=== PATIENT | female | born 1970 | race Caucasian/White ===

== ENCOUNTER 2018-10-20 07:00 | Emergency (ER) | payer BC ==
[2018-10-20 07:17] VITALS: BP 124/80; PULSE 75; TEMP 97.9; BMI 30.8
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
== END 2018-10-20 08:29 | disposition home or self-care (01) ==
LOC: JER 07:00
DX: S90.01XA Contusion of right ankle, initial encounter (principal); X58.XXXA Exposure to other specified factors, initial encounter; Y93.89 Activity, other specified; Y92.89 Other specified places as the place of occurrence of the external cause
CPT/HCPCS: 73610-TC-RT-FY; 73630-TC-RT-FY; 99281-25

== ENCOUNTER 2019-08-04 10:19 | Emergency (ER) | payer BC ==
[2019-08-04 10:44] VITALS: BMI 38.3
--- NOTE | 2019-08-04 11:17 | PDOC ---
Attending Attestation - Resident Resident Name: Pricila Ying Ewa - HPI HPI: 08/04/19 12:41 pt presents to the ED complaining of a two day history of vague numbness and weakness of the entire right side. Reports that these symptoms have been intermittent, and present primarily at work. Denies slurred speech, confusion. Currently reports that her symptoms are minimal. Reports that she feels like her right foot is stuck to the floor occasionally when she is walking, but that she remains standing. This sensation lasts for seconds, and then the patient is able to continue ambulating. - Physicial Exam PE: 08/04/19 12:45 agree with resident exam. patient is alert and oriented and mildly anxious, but otherwise in no acute distress. Neuro: patient is alert and oriented x 3. Speech is fluent and clear. 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 No facial droop. No drift of either arm or leg. - Medical Decision Making 08/04/19 12:50 Pt presents to the ED complaining of subjective, intermittent numbness and weakness. Neuro exam is normal. No risk factors for CVA. Differential includes anxiety, electrolyte disturbance, less likely intracranial lesion or CVA. Will check labs and CT Head, likely discharge home if negative.
--- NOTE | 2019-08-04 11:40 | PDOC ---
History of Present Illness - General Chief Complaint: Weakness Stated Complaint: RT SIDED NUMBNESS Time Seen by Provider: 08/04/19 11:17 History Source: Patient - History of Present Illness Initial Comments: 08/04/19 16:32 49 y/o/f here for a sensation of weakness in her right upper and lower extremities. She states the symptoms started 2 days ago but she did not notice the symptoms as much until yesterday when she went to work. She states that intermittently her right leg feels heavy and it "feels like there is a magnet on the floor" that her leg gets stuck too. She states she feels better at home and notices the symptoms more when she is at work. She denies any numbness. She states she has felt a pins and needle sensation on her right anterior thigh. She denies any headache, SOB, chest pain, abd pain, dysuria, sore throat, cough , or other symptoms. PMHx: denies SHx: spinal fusion in 2013 Social: denies alcohol and tobacco use Past History - Past Medical History Allergies/Adverse Reactions: Allergies Allergy/AdvReac Type Severity Reaction Status Date / Time morphine Allergy Verified 08/04/19 12:26 codeine [Codeine] AdvReac NAUSEA/VOMI Verified 08/04/19 12:26 TING Home Medications: Ambulatory Orders NK [No Known Home Medication] 08/04/19 COPD: No Disorders: Yes (ENDOMETRIOSIS) - Immunization History Immunization Up to Date: Yes - Suicide/Smoking/Psychosocial Hx Smoking Status: No Smoking History: Never smoked Number of Cigarettes Smoked Daily: 0 Information on smoking cessation initiated: No Hx Alcohol Use: No Drug/Substance Use Hx: No Substance Use Type: None Hx Substance Use Treatment: No Review of Systems - Review of Systems Able to Perform ROS?: Yes Constitutional: No: Chills, Fever HEENTM: No: Nose Congestion, Difficulty Swallowing Respiratory: No: Cough, Shortness of Breath Cardiac (ROS): No: Chest Pain, Lightheadedness ABD/GI: No: Diarrhea, Nausea, Vomiting : No: Dysuria, Hematuria Musculoskeletal: No: Joint Pain, Muscle Pain Integumentary: No: Rash Neurological: Yes: Weakness. No: Numbness Psychiatric: No: Anxiety Endocrine: No: Excessive Sweating *Physical Exam - Vital Signs Last Vital Signs Temp Pulse Resp BP Pulse Ox 97.7 F 72 18 110/70 98 08/04/19 10:38 08/04/19 10:38 08/04/19 10:38 08/04/19 10:38 08/04/19 10:38 - Physical Exam General Appearance: Yes: Nourished, Appropriately Dressed HEENT: positive: EOMI, GABY, Normal Voice, Symmetrical Neck: positive: Trachea midline, Supple Respiratory/Chest: positive: Lungs Clear, Normal Breath Sounds. 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 negative: Facial Droop, Numbness, Sensory Deficit ED Treatment Course - LABORATORY CBC & Chemistry Diagram: 08/04/19 12:02 08/04/19 12:02 Medical Decision Making - Medical Decision Making 08/04/19 11:39 -49 y/o/f here for a sensation of weakness in her right upper and lower extremities. She states the symptoms started 2 days ago but she did not notice the symptoms as much until yesterday when she went to work. She states that intermittently her right leg feels heavy and it "feels like there is a magnet on the floor" that her leg gets stuck too. She states she feels better at home and notices the symptoms more when she is at work. She denies any numbness. -Workup with CBC, CMP. -Will order CT head pending results of urine test. -CT head negative for acute pathology. -CBC, CMP grossly normal. -Will discharge patient home with follow up instructions. *DC/Admit/Observation/Transfer Diagnosis at time of Disposition: Skin sensation disturbance - Discharge Dispostion Disposition: HOME Condition at time of disposition: Improved - Referrals - Patient Instructions Additional Instructions: If you worsening numbness, weakness, pain, fever, or other concerning symptoms please return to the ER. Please follow up with your primary care doctor within the next week. - Post Discharge Activity Forms/Work/School Notes: Back to Work
[2019-08-04 12:17] LABS: BASO % 0.8 % (0-2.0); EOS % 1.7 % (0-4.5); HEMATOCRIT 34.4 % (32.4-45.2); HEMOGLOBIN 11.5 GM/dL (10.7-15.3); LYMPH % 29.1 % (8-40); MCH 28.7 pg (25.7-33.7); MCHC 33.4 g/dl (32.0-36.0); MEAN PLT VOLUME 10.2 fl (7.5-11.1); MONO % 8.4 % (3.8-10.2); PLATELET COUNT 203 K/MM3 (134-434); RDW 14.2 % (11.6-15.6); WHITE BLOOD COUNT 4.2 K/mm3 (4.0-10.0)
[2019-08-04 12:40] LABS: ALBUMIN 3.9 g/dl (3.4-5.0); BILIRUBIN,TOTAL 0.4 mg/dL (0.2-1); BLOOD UREA NITROGEN 11.9 mg/dL (7-18); CALCIUM 8.6 mg/dL (8.5-10.1); CREATININE 0.9 mg/dL (0.55-1.3); POTASSIUM 3.9 mmol/L (3.5-5.1); TOT PROT 6.8 g/dl (6.4-8.2)
[2019-08-04 14:11] VITALS: BP 115/56; PULSE 67; TEMP 98.6
--- NOTE | 2019-08-04 16:29 | EKG ---
Test Reason : Blood Pressure : / mmHG Vent. Rate : 070 BPM Atrial Rate : 070 BPM P-R Int : 146 ms QRS Dur : 082 ms QT Int : 442 ms P-R-T Axes : 033 043 029 degrees QTc Int : 477 ms NORMAL SINUS RHYTHM POSSIBLE LEFT ATRIAL ENLARGEMENT BORDERLINE ECG WHEN COMPARED WITH ECG OF 18-DEC-2014 18:29, NO SIGNIFICANT CHANGE WAS FOUND Confirmed by Jaime Urbano ([id number]) on 08/04/2019 4:28:36 PM Referred By: Confirmed By:Jaime Urbano
== END 2019-08-04 14:13 | disposition home or self-care (01) ==
LOC: JER 10:19
DX: R20.9 Unspecified disturbances of skin sensation (principal)
CPT/HCPCS: 36415; 70450-TC; 80053; 84703; 85025; 93005; 93010; 99284-25

== ENCOUNTER 2022-10-13 09:00 | Emergency (ER) | payer BC ==
[2022-10-13 09:22] VITALS: BP 113/73; PULSE 70; RESP 16; TEMP 99; BMI 39.1
[2022-10-13] MEDS ORDERED: FAMOTIDINE 20 MG TABLET PO ONE (09:37)
[2022-10-13] MEDS ORDERED: MAG HYDROX/AL HYDROX/SIMETH 30 ML UNIT-DOSE CUP PO ONE (09:37)
[2022-10-13] MEDS ORDERED: FAMOTIDINE 20 MG TABLET ONE (09:51)
[2022-10-13] MEDS ORDERED: MAG HYDROX/AL HYDROX/SIMETH 30 ML UNIT-DOSE CUP ONE (09:52)
[2022-10-13 10:06] LABS: HCG,QUALITATIVE URINE Negative
[2022-10-13 10:22] LABS: HEMATOCRIT 38.8 % (32.4-45.2); HEMOGLOBIN 13.1 G/dL (10.7-15.3); MCHC 33.8 g/dl (32.0-36.0); MEAN CELL VOLUME 88.5 fl (80-96); MEAN PLT VOLUME 9.7 fl (7.5-11.1); PLATELET COUNT 238.8 10^3/uL (134-434); RBC 4.38 10^6/uL (3.60-5.2); RDW 13.6 % (11.6-15.6); WHITE BLOOD COUNT 7.5 10^3/uL (4.0-10.8)
[2022-10-13 10:29] LABS: ALBUMIN 3.9 g/dl (3.4-5.0); BILIRUBIN,TOTAL 0.6 mg/dl (0.2-1); CALCIUM 8.7 mg/dl (8.5-10); CREATININE 0.7 mg/dl (0.55-1.3); TOT PROT 6.6 g/dl (6.4-8.2)
[2022-10-13 10:40] LABS: PLATELET ESTIMATE ADEQUATE
== END 2022-10-13 11:47 | disposition home or self-care (01) ==
LOC: FER 09:00
DX: K29.70 Gastritis, unspecified, without bleeding (principal)
CPT/HCPCS: 0241U-QW; 36415; 76705-TC; 80053; 81003; 83690; 84484; 84703; 85027; 93005; 99285-25

== ENCOUNTER 2022-12-04 08:29 | Emergency (ER) | payer BC ==
[2022-12-04 08:46] VITALS: BP 118/82; PULSE 81; RESP 20; TEMP 98.1; BMI 40.4
[2022-12-04] MEDS ORDERED: ACETAMINOPHEN 1000 MG/100 ML BAG IVPB ONE (09:55)
[2022-12-04] MEDS ORDERED: METOCLOPRAMIDE HCL INJECTION 10 MG/2 ML VIAL IVPUSH ONE (09:55)
[2022-12-04] MEDS ORDERED: SODIUM CHLORIDE 0.9% 500 ML INFUS.BAG IV ONE (09:55)
[2022-12-04] MEDS ORDERED: ACETAMINOPHEN INJECTION 100 ML IVPB ONE ×2 (10:46→12:02)
[2022-12-04] MEDS ORDERED: METOCLOPRAMIDE HCL INJECTION 10 MG/2 ML VIAL ONE ×2 (10:46→12:02)
[2022-12-04 12:37] LABS: BASO % 0.6 % (0-2.0); EOS % 0.7 % (0-4.5); HEMATOCRIT 39.7 % (32.4-45.2); HEMOGLOBIN 13.3 GM/dL (10.7-15.3); LYMPH % 10.8 % (8-40); MCH 29.3 pg (25.7-33.7); MCHC 33.6 g/dl (32.0-36.0); MEAN CELL VOLUME 87.4 fl (80-96); MEAN PLT VOLUME 10.2 fl (7.5-11.1); MONO % 6.4 % (3.8-10.2); NEUT % 81.5 % (42.8-82.8); PLATELET COUNT 250 10^3/uL (134-434); RBC 4.54 M/mm3 (3.60-5.2); WHITE BLOOD COUNT 7.4 K/mm3 (4.0-10.0)
[2022-12-04 13:04] LABS: ALBUMIN 4.2 g/dl (3.4-5.0); CALCIUM 8.7 mg/dL (8.5-10.1)
[2022-12-04 13:05] LABS: BLOOD UREA NITROGEN 16.2 mg/dL (7-18)
[2022-12-04 13:09] LABS: BILIRUBIN,TOTAL 0.7 mg/dL (0.2-1); TOT PROT 7.5 g/dl (6.4-8.2)
[2022-12-04] MEDS ORDERED: KETOROLAC TROMETHAMINE 30 MG/1 ML VIAL IVPUSH ONE (14:07)
[2022-12-04] MEDS ORDERED: DEXAMETHASONE SOD PHOSPHATE 10 MG/1 ML VIAL IVPUSH ONE (14:07)
[2022-12-04] MEDS ORDERED: KETOROLAC TROMETHAMINE 30 MG/1 ML VIAL ONE (14:12)
== END 2022-12-04 14:30 | disposition home or self-care (01) ==
LOC: JER 08:29
PROC: 3E033GC Introduction of Other Therapeutic Substance into Peripheral Vein, Percutaneous Approach (ICD-10-PCS; principal; 2022-12-04)
DX: R51.9 Headache, unspecified (principal)
CPT/HCPCS: 36415; 70450-TC; 70496-TC; 80053; 85025; 99285-25; Q9967

== ENCOUNTER 2023-01-13 01:15 | Emergency (ER) | payer BC ==
[2023-01-13 01:21] VITALS: BP 130/66; PULSE 85; RESP 17; TEMP 99.5; BMI 40.4
== END 2023-01-13 01:58 | disposition home or self-care (01) ==
LOC: FER 01:15
DX: J02.9 Acute pharyngitis, unspecified (principal)
CPT/HCPCS: 0241U-QW; 87651; 99283-25